=== PATIENT | female | born 1975 | race African-American/Black ===

== ENCOUNTER 2017-09-08 00:37 | Emergency (ER) | payer MEDICAID, OTHER ==
[~2017-09-08] VITALS: Ht 170.2 cm; Wt 73.0 kg
[2017-09-08 06:00] LABS: CLARITY URINE CLEAR (CLEAR); COLOR URINE YELLOW (YELLOW); KETONES URINE NEGATIVE (NEGATIVE); LEUKOCYTE ESTERASE URINE NEGATIVE (NEGATIVE); NITRITE URINE NEGATIVE (NEGATIVE); OCCULT BLOOD URINE NEGATIVE (NEGATIVE); PROTEIN URINE NEGATIVE (NEGATIVE); SPECIFIC GRAVITY URINE 1.011 (1.005-1.030); UROBILINOGEN URINE 0.2 E.U./dL (0.2-1.0)
[2017-09-08 06:05] LABS: CHLORIDE 116 mEq/L (98-107)
[2017-09-08 06:18] LABS: CARBON DIOXIDE 26 mEq/L (21-32)
[2017-09-08 06:22] LABS: ETHANOL BLOOD 356 mg/dL
[2017-09-08 06:26] LABS: *BARBITURATES SCREEN URINE NEGATIVE (NEGATIVE); *BENZODIAZEPINES SCREEN URINE NEGATIVE (NEGATIVE); CANNABINOID URINE SCREEN NEGATIVE (NEGATIVE); METHADONE URINE SCREEN NEGATIVE (NEGATIVE); OPIATES URINE SCREEN NEGATIVE (NEGATIVE); PHENCYCLIDINE URINE SCREEN NEGATIVE (NEGATIVE)
[2017-09-08 06:26] LABS: BASOPHILS % 0.8 % (0.0-2.0); HEMATOCRIT. 40.2 % (36.0-48.0); HEMOGLOBIN. 13.2 g/dL (12.0-16.0); LYMPHOCYTES % 54.3 % (20.0-50.0); MEAN CORPUSCULAR HEMOGLOBIN 31.4 pg (28.0-32.0); MEAN CORPUSCULAR VOLUME 96.1 fL (81.0-99.0); MEAN PLATELET VOLUME 7.7 fl (7.4-10.4); MONOCYTES % 9.6 % (2.0-8.0); NEUTROPHILS % 34.3 % (40.0-76.0); PLATELET 337 x1000/uL (130-400); RED BLOOD CELL COUNT 4.18 mill/uL (4.2-5.4); RED CELL DISTRIBUTION WIDTH 13.1 % (11.6-14.6)
[2017-09-08 06:27] LABS: *AMPHETAMINES SCREEN URINE PRESUMTIVE POSITIVE (NEGATIVE); *COCAINE SCREEN URINE PRESUMTIVE POSITIVE (NEGATIVE)
[2017-09-08 09:35] VITALS: BP 101/68
== END 2017-09-08 09:49 | disposition home or self-care (01) ==
LOC: ER 00:37
DX: F10.129 Alcohol abuse with intoxication, unspecified (principal); F41.9 Anxiety disorder, unspecified; F17.200 Nicotine dependence, unspecified, uncomplicated; Z59.0 Homelessness
CPT/HCPCS: 36415; 80053; 80305; 81003; 85025; 99284; G0482